=== PATIENT | male | born 1980 | race Hispanic/Latino ===

== ENCOUNTER 2025-03-09 13:50 | Emergency (ER) | payer BC, SELFPAY ==
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
[2025-03-09 14:01] VITALS: PULSE 90; RESP 18; O2SAT 94
--- NOTE | 2025-03-09 14:25 | ED_ITS ---
HPI - General Adult General Chief complaint: Unspecified Stated complaint: drug use Time Seen by Provider: 03/09/25 14:08 History of Present Illness HPI narrative: Patient 44-year-old gentleman who presents emergency department with chief complaint of opiate overdose. The patient was found agonal respirations with dried blood at the the patient was given intranasal Narcan by EMS received assisted ventilations for 2 minutes and then woke up the patient states that he feels as though he is having some withdrawal symptoms of and reports that he uses crack cocaine patient denies suicidal or homicidal ideation Related Data Allergies Allergy/AdvReac Type Severity Reaction Status Date / Time No Known Allergies Allergy Verified 05/24/18 18:59 Review of Systems Review of Systems: A 10 system review of systems was completed on the patient and is negative except for what is stated in the HPI. Nursing and ancillary documentation was reviewed. [facility] Family History Family History Mother Patient's mother is in good health Father Patient's father is in good health Social History Social History Smoking status: Current every day smoker Alcohol intake: current Exam Narrative: GENERAL: Well-appearing, well-nourished, and in no acute distress. HEAD: Normocephalic, atraumatic. EYES: PERRLA and EOMI. ENT: Nares clear, no rhinorrhea or epistaxis. Mucous membranes moist. NECK: Supple. CHEST: Clear to auscultation. No respiratory distress. HEART: Regular rate and rhythm. No murmur heard. Normal peripheral pulses. ABDOMEN: Soft, nontender, nondistended, normal active bowel sounds. EXTREMITIES: Normal range of motion. No edema. Abrasion present to the toes on the left foot SKIN: Warm, dry, no rash. NEURO: No focal deficits. Alert and oriented x3. PSYCH: Normal mood and affect. Course Vital Signs Vital signs: Vital Signs Pulse Rate 90 03/09/25 14:01 Respiratory Rate 18 03/09/25 14:01 Pulse Oximetry 94 03/09/25 14:01 Pulse Rate 90 03/09/25 14:01 Respiratory Rate 18 03/09/25 14:01 Pulse Oximetry 94 03/09/25 14:01 Medical Decision Making MDM Narrative Medical decision making narrative: Differential diagnosis includes opiate overdose, Patient is awake alert in no acute distress this time responded to Narcan provided by EMS patient's vitals were stable the patient will be given a prescription for Narcan and will be referred to Mental Health for substance abuse Vital Signs Vital Signs: Vital Signs Pulse Rate 90 03/09/25 14:01 Respiratory Rate 18 03/09/25 14:01 Pulse Oximetry 94 03/09/25 14:01 Pulse Rate 90 03/09/25 14:01 Respiratory Rate 18 03/09/25 14:01 Pulse Oximetry 94 03/09/25 14:01 Discharge Plan Discharge Clinical Impression: Opiate overdose Qualifiers: Encounter type: initial encounter Injury intent: accidental or unintentional Qualified Code(s): T40.601A - Poisoning by unspecified narcotics, accidental (unintentional), initial encounter Patient Disposition: Home Condition: Stable Instructions: Antibiotic Form, Narcotic Safety (ED), Abrasion (ED), Opioid Safety (ED), Opioid Use Disorder (ED) Patient Language: Luxembourgish Prescriptions: New naloxone [Narcan] 4 mg/actuation spray,non-aerosol 4 mg intranasal Q2-3M PRN (Reason: opioid overdose) Qty: 2 0RF Rx Instructions: spray 1 dose into ONE nostril; alternate nostrils w each dose until help arrives Follow-up/Referrals: [facility] [Outside] PHYSICIAN,[employer]EE[employer] MACHINE [Primary Care Provider, Internal Medicine] Zoran Wyatt MD [Physician, Family Practice] Time of Disposition: 15:07
[2025-03-09 15:06] VITALS: BP 117/87
[2025-03-09] MEDS: ONDANSETRON HCL ODT 4 MG TABLET PO (15:09)
[2025-03-09] MEDS: PROCHLORPERAZINE EDISYLATE 10 MG/2 ML VIAL IM (15:24)
== END 2025-03-09 15:37 | disposition home or self-care (01) ==
PROVIDERS: Emergency Provider Emergency Medicine
DX: T40.601A Poisoning by unspecified narcotics, accidental (unintentional), initial encounter (principal); F17.200 Nicotine dependence, unspecified, uncomplicated
CPT/HCPCS: 96372; 99283; A9270; J0780